=== PATIENT | female | born 1975 | race Two or more races ===

== ENCOUNTER 2017-05-05 07:58 | Day surgery (SDC) | payer OTHER ==
[~2017-05-05] VITALS: Ht 154.9 cm; Wt 54.0 kg
[~2017-05-05 07:58] MED LIST: B-COMPLEX-VITA1 EACH PO; CALCIUM + D3 E1 EACH PO; LO LOESTRIN FE1 EACH PO; MAGNESIUM400 M1 PO; PREDNISONE10 MG PO; PROBIOTIC250 MG PO; SELENOMAX200 MCG PO
[2017-05-05 08:29] VITALS: BP 114/69
[2017-05-05 16:03] VITALS: BP 101/55
[2017-05-05 16:57] VITALS: BP 113/89
== END 2017-05-05 17:30 | disposition home or self-care (01) ==
LOC: SDC 07:58
PROC: 0HBT0ZX Excision of Right Breast, Open Approach, Diagnostic (ICD-10-PCS; principal; 2017-05-05)
DX: D05.11 Intraductal carcinoma in situ of right breast (principal); Z17.0 Estrogen receptor positive status [ER+]; K90.0 Celiac disease; E05.00 Thyrotoxicosis with diffuse goiter without thyrotoxic crisis or storm; E06.3 Autoimmune thyroiditis; D50.9 Iron deficiency anemia, unspecified; L30.9 Dermatitis, unspecified; F32.9 Major depressive disorder, single episode, unspecified; F41.9 Anxiety disorder, unspecified; Z88.6 Allergy status to analgesic agent; Z88.8 Allergy status to other drugs, medicaments and biological substances; Z91.011 Allergy to milk products
CPT/HCPCS: 88307; J0131; J0690; J1100; J1170; J1885; J2250; J2405; J3010; S0020